=== PATIENT | female | born 1950 | race Two or more races ===

== ENCOUNTER 2018-10-05 02:24 | Emergency (ER) | payer MEDICARE, OTHER ==
[~2018-10-05] VITALS: Ht 162.6 cm; Wt 73.5 kg
--- NOTE | 2018-10-05 02:26 | NUR ---
Pt BIBRA FOR NAUSEA/VOMITTING AFTER TAKING "HERBAL SUPPLEMENTS AT 7 PM LAST NIGHT." PT DAUGHTER STATES PT STARTING FEELING WEAK AND SLEEP AT MIDNIGHT, AND THE NAUSEA AND VOMITTING STARTED AROUND 2 AM. PT RESPIRATIONS EVEN AND UNLABORED. EMESIS ON MOUTH NOTED, PT DROWSY UPON ARROUSAL. PT PUT ON THE REPORTING COORDINATOR AND PULSE OX.
--- NOTE | 2018-10-05 02:38 | NUR ---
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 LABS SENT.
[2018-10-05] MEDS ORDERED: ONDANSETRON HCL/PF 4 MG/2 ML VIAL ONE ×2 (02:41→04:03)
[2018-10-05 02:56] LABS: BASOPHILS % (AUTO) 0.7 % (0.0-2.0); EOSINOPHILS % (AUTO) 3.4 % (0.0-6.0); HEMATOCRIT 37 % (33-45); HEMOGLOBIN 12.8 g/dL (11.5-14.8); LYMPHOCYTES % (AUTO) 32.5 % (20.0-44.0); MEAN CORPUSCULAR HGB CONC 35 g/dl (31.0-36.0); MEAN CORPUSCULAR VOLUME 91 fL (82-100); MONOCYTES # (AUTO) 0.3 /CMM (0.1-1.30); MONOCYTES % (AUTO) 5.2 % (2.0-12.0); NEUTROPHILS # (AUTO) 3.7 /CMM (1.8-8.9); NEUTROPHILS % (AUTO) 58.2 % (43.0-81.0); PLATELET COUNT (AUTO) 215 /CMM (150-450); RED BLOOD CELL COUNT(AUTO) 4.08 MIL/uL (4.0-5.2); WHITE BLOOD COUNT (AUTO) 6.3 K/uL (4.3-11.0)
[2018-10-05] MEDS ORDERED: IV NS 0.9% 1,000 ML BAG IV ONE (03:00)
[2018-10-05] MEDS ORDERED: ONDANSETRON HCL/PF 4 MG/2 ML VIAL IVP ONE (03:00)
--- NOTE | 2018-10-05 03:00 | NUR ---
PT RESTING IN BED, EASILY AROUSABLE. NAD NOTED. WILL CONTINUE TO MONITOR.
[2018-10-05 03:04] LABS: CALCIUM, SERUM 8.6 mg/dL (8.5-10.1); CREATININE 0.8 mg/dL (0.6-1.3); POTASSIUM 3.5 mmol/L (3.5-5.1)
[2018-10-05 03:09] LABS: ALBUMIN 3.9 g/dL (3.4-5.0); BILIRUBIN,DIRECT 0.1 mg/dL (0.0-0.2); BILIRUBIN,TOTAL 0.3 mg/dL (0.2-1.0); TOTAL PROTEIN, SERUM 6.5 g/dL (6.4-8.2)
--- NOTE | 2018-10-05 03:51 | NUR ---
CALLED [facility] FOR TRANSPORT ETA OF [id number] WAS GIVEN. TRIP#[id number]
--- NOTE | 2018-10-05 04:00 | NUR ---
PT VOMITTING AND FEELING NAUSEOUS. ER MD AWARE. VERBAL ORDER OF 4MG ZOFRAN IVP. WILL CARRY OUT ORDERS.
--- NOTE | 2018-10-05 04:42 | NUR ---
Patient discharged to transport home via ambulance in stable condition. Written and verbal after care instructions given. Patient family verbalizes understanding of instruction. IV removed. Catheter intact and site benign. Pressure and 4x4 applied to site. No bleeding noted.
[2018-10-05 04:50] VITALS: BP 106/70
== END 2018-10-05 04:51 | disposition home or self-care (01) ==
LOC: ER 02:26
DX: R11.2 Nausea with vomiting, unspecified (principal); G30.9 Alzheimer's disease, unspecified; I10 Essential (primary) hypertension; E11.9 Type 2 diabetes mellitus without complications
CPT/HCPCS: 36415; 80048; 80076; 85025; 96361; 96374; 99283; J2405 ×2; J7030